=== PATIENT | female | born 1970 | race Caucasian/White ===

== ENCOUNTER 2024-03-07 08:03 | Emergency (ER) | payer MEDICARE, MEDICAID ==
[2024-03-07] MEDS ORDERED: Ondansetron PF 4 MG/2 ML Vial ONE (09:25)
[2024-03-07 09:39] LABS: #Basophils 0.03 10x3/uL (0.0-0.2); %Basophils 0.6 % (0.0-1.0); %Eosinophils 1.5 % (0.0-10.0); %Lymphocytes 27.8 % (21.0-51.0); %Monocytes 6.9 % (0.0-10.0); Hematocrit 36.2 % (36.0-47.0); Hemoglobin 12.2 g/dL (12.0-16.0); Mean Corpuscular HGB CONC 33.7 g/dL (32.0-36.0); Mean Corpuscular Hemoglobin 31.6 pg (27.0-31.0); Mean Corpuscular Volume 93.8 fL (78.0-98.0); Platelet Count 186 10x3/uL (130-400); RBC Distribution Width 12.7 % (11.5-14.5); Red Blood Cell (RBC) Count 3.86 mill/uL (4.20-5.40)
[2024-03-07 10:28] LABS: ALT (SGPT) 19 U/L (8-55); AST (SGOT) 22 U/L (5-34); Albumin 3.8 g/dL (3.5-5.0); Alkaline Phosphatase 54 U/L (40-110); Anion Gap 12 mmol/L (10-20); BUN (Urea Nitrogen) 19 mg/dL (9.8-20.1); Bilirubin, Total 0.2 mg/dL (0.2-1.2); Calc. Creatinine Clearance 0 mL/min (70-130); Calcium 8.5 mg/dL (7.8-10.44); Carbon Dioxide 25 mmol/L (22-29); Chloride 107 mmol/L (98-107); Estimated GFR 91; Globulin 2.8 g/dL (2.4-3.5); Glucose 83 mg/dL (70-105); Lipase 19 U/L (8-78); Potassium 4.2 mmol/L (3.5-5.1); Protein, Total 6.6 g/dL (6.0-8.3); Sodium 140 mmol/L (136-145)
[2024-03-07 10:37] LABS: Bacteria/HPF None Seen HPF (None Seen); Bilirubin Negative (Negative); Blood, Urine Negative (Negative); CAUTI Indications for Culture Pregnancy; Clarity Turbid (Clear); Glucose, Urine (Dipstick) Normal (Negative); Ketone, Urine Negative (Negative); Leukocyte Negative Leu/uL (Negative); Nitrite Negative (Negative); Protein, Urine (Dipstick) Negative (Neg-Trace); Specific Gravity, Urine 1.025 (1.002-1.036); Squamous Epithelial None Seen HPF (0-3); Urobilinogen Normal mg/dL (Less than 2); WBC/HPF None Seen HPF (0-3); pH, Urine 7.5 (5.0-9.0)
[2024-03-07 10:39] LABS: Urine Culture Reflex Yes Yes
== END 2024-03-07 12:50 ==
LOC: ERS 08:03
DX: R11.2 Nausea with vomiting, unspecified (principal); R00.1 Bradycardia, unspecified; Z87.891 Personal history of nicotine dependence; R35.0 Frequency of micturition
CPT/HCPCS: 80053; 81001; 83690; 85025; 87086; 87428; 93005; 96361; 96374; 99284; J2405

== ENCOUNTER 2024-03-26 10:41 | Inpatient (IN) | payer OTHER, MEDICAID ==
[2024-03-26 11:07] LABS: #Basophils Less than 0.03 10x3/uL (0.0-0.2); %Basophils 0.2 % (0.0-1.0); %Eosinophils 1.4 % (0.0-10.0); %Lymphocytes 35.8 % (21.0-51.0); %Monocytes 4.7 % (0.0-10.0); %Neutrophils 57.7 % (42.0-75.0); Hematocrit 38.4 % (36.0-47.0); Hemoglobin 12.8 g/dL (12.0-16.0); Mean Corpuscular HGB CONC 33.3 g/dL (32.0-36.0); Mean Corpuscular Hemoglobin 31.4 pg (27.0-31.0); Mean Corpuscular Volume 94.3 fL (78.0-98.0); Mean Platelet Volume 10.8 fL (7.4-10.4); Platelet Count 189 10x3/uL (130-400); RBC Distribution Width 12.4 % (11.5-14.5); Red Blood Cell (RBC) Count 4.07 mill/uL (4.20-5.40)
[2024-03-26 11:33] LABS: ALT (SGPT) 11 U/L (8-55); AST (SGOT) 15 U/L (5-34); Albumin 3.9 g/dL (3.5-5.0); Alkaline Phosphatase 52 U/L (40-110); Anion Gap 12 mmol/L (10-20); BUN (Urea Nitrogen) 21 mg/dL (9.8-20.1); Bilirubin, Total 0.3 mg/dL (0.2-1.2); Calc. Creatinine Clearance 0 mL/min (70-130); Calcium 9.5 mg/dL (7.8-10.44); Carbon Dioxide 30 mmol/L (22-29); Chloride 107 mmol/L (98-107); Estimated GFR 83; Globulin 3.2 g/dL (2.4-3.5); Glucose 96 mg/dL (70-105); Lipase 21 U/L (8-78); Magnesium 2.2 mg/dL (1.6-2.6); Potassium 3.8 mmol/L (3.5-5.1); Protein, Total 7.1 g/dL (6.0-8.3); Sodium 145 mmol/L (136-145)
[2024-03-26] MEDS ORDERED: Metoclopramide HCl 10 MG (2 mL) VIAL ONE (14:08)
[2024-03-26] MEDS ORDERED: Ondansetron ODT 4 MG TAB PO PRN (14:26)
[2024-03-26] MEDS ORDERED: Bisacodyl 10 MG SUPP PR PRN (14:26)
[2024-03-26] MEDS ORDERED: Ondansetron PF 4 MG/2 ML Vial IVP PRN (14:26)
[2024-03-26] MEDS ORDERED: Acetaminophen 650 MG Suppository PR PRN (14:26)
[2024-03-26 15:02] LABS: Bacteria/HPF None Seen HPF (None Seen); Bilirubin Negative (Negative); Blood, Urine Negative (Negative); CAUTI Indications for Culture Dysuria,urgency,freq; Clarity Clear (Clear); Glucose, Urine (Dipstick) Normal (Negative); Ketone, Urine Negative (Negative); Leukocyte Negative Leu/uL (Negative); Nitrite Negative (Negative); Protein, Urine (Dipstick) Negative (Neg-Trace); RBC/HPF 0-3 HPF (0-3); Squamous Epithelial 0-3 HPF (0-3); Urobilinogen Normal mg/dL (Less than 2); WBC/HPF None Seen HPF (0-3); pH, Urine 6.5 (5.0-9.0)
[2024-03-26 15:37] LABS: Specific Gravity, Urine Greater than 1.060 (1.002-1.036); Urine Culture Reflex No No
[2024-03-26 15:49] VITALS: BMI 22.1
[2024-03-26] MEDS: Enoxaparin 40 MG (0.4 mL) SYRINGE SC SCH (16:22)
[2024-03-26] MEDS: Lactated Ringer's 1,000 ML IV SCH ×2 (18:48→20:52)
[2024-03-26] MEDS: Famotidine/PF 20 mg/2ml Vial SLOW IVP SCH (20:52)
[2024-03-26] MEDS ORDERED: Atropine Sulfate 1 mg/1 ml Vial IVP PRN (22:01)
[2024-03-26] MEDS: Lactated Ringer's 500 ML IV SCH (22:30)
[2024-03-27] MEDS: Acetaminophen 325 MG TAB PO PRN (06:09)
[2024-03-27 08:13] LABS: #Basophils Less than 0.03 10x3/uL (0.0-0.2); %Basophils 0.3 % (0.0-1.0); %Eosinophils 2.1 % (0.0-10.0); %Monocytes 6.1 % (0.0-10.0); %Neutrophils 53.2 % (42.0-75.0); Hematocrit 37.2 % (36.0-47.0); Hemoglobin 12.1 g/dL (12.0-16.0); Mean Corpuscular HGB CONC 32.5 g/dL (32.0-36.0); Mean Corpuscular Hemoglobin 30.9 pg (27.0-31.0); Mean Corpuscular Volume 95.1 fL (78.0-98.0); Mean Platelet Volume 11.1 fL (7.4-10.4); Platelet Count 168 10x3/uL (130-400); RBC Distribution Width 12.5 % (11.5-14.5); Red Blood Cell (RBC) Count 3.91 mill/uL (4.20-5.40)
[2024-03-27 08:22] LABS: Anion Gap 11 mmol/L (10-20); BUN (Urea Nitrogen) 15 mg/dL (9.8-20.1); Calc. Creatinine Clearance 93 mL/min (70-130); Calcium 8.5 mg/dL (7.8-10.44); Carbon Dioxide 27 mmol/L (22-29); Chloride 109 mmol/L (98-107); Estimated GFR 106; Glucose 76 mg/dL (70-105); Sodium 143 mmol/L (136-145)
[2024-03-27] MEDS: Enoxaparin 40 MG (0.4 mL) SYRINGE SC SCH (08:48)
[2024-03-27 13:52] VITALS: BMI 22.1
[2024-03-27] MEDS: Pantoprazole 40 MG VIAL IVP SCH (18:27)
[2024-03-28] MEDS ORDERED: Melatonin 3 MG TAB PO PRN (00:16)
[2024-03-28] MEDS ORDERED: Lidocaine 2% PF 5 ML VIAL ONE (08:56)
[2024-03-28] MEDS ORDERED: PROPOFOL 40 ML ONE (08:56)
[2024-03-28 17:34] VITALS: BP 99/65; TEMP 97.9
[2024-03-29] MEDS ORDERED: FLU (Fluarix Triv) TS24-25(6MOS UP)/PF 45 MCG/0.5 ML Syringe IM ONE (09:00)
== END 2024-03-28 13:10 | disposition home or self-care (01) | DRG 392 ==
LOC: ERS 10:41 → MSONC 14:26 → OBSVTOIN 03-27 12:58
PROVIDERS: ADMIT Internal Medicine; ATTEND Family Medicine
PROC: 0DJ08ZZ Inspection of Upper Intestinal Tract, Via Natural or Artificial Opening Endoscopic (ICD-10-PCS; principal; 2024-03-28)
DX: R11.2 Nausea with vomiting, unspecified (principal); G10 Huntington's disease; E86.0 Dehydration; R00.1 Bradycardia, unspecified; T50.905A Adverse effect of unspecified drugs, medicaments and biological substances, initial encounter; Z88.8 Allergy status to other drugs, medicaments and biological substances; Z79.899 Other long term (current) drug therapy; F32.A Depression, unspecified; Z90.710 Acquired absence of both cervix and uterus; Z90.89 Acquired absence of other organs; F17.210 Nicotine dependence, cigarettes, uncomplicated; E86.9 Volume depletion, unspecified; F03.90 Unspecified dementia, unspecified severity, without behavioral disturbance, psychotic disturbance, mood disturbance, and anxiety
CPT/HCPCS: 36415; 70450; 74177; 76705; 80048; 80053; 81001; 82607; 83690; 83735; 84425; 84443; 85025; 93005; 93010; 96361; 96372; 96374; 96375; 96376; G0378; J1650; J2470; J2704; J2765; J3490; J7120